=== PATIENT | female | born 1985 | race Hispanic/Latino ===

== ENCOUNTER 2017-03-28 14:09 | Emergency (ER) | payer BC, OTHER ==
[2017-03-28 14:29] VITALS: BP 118/65; PULSE 66; RESP 16; TEMP 97.9; O2SAT 100
--- NOTE | 2017-03-28 14:47 | ED PDOC ---
HPI: Head Injury Time Seen by Provider: 03/28/17 14:41 Chief Complaint (Nursing): Headache Chief Complaint (Provider): Headache, Facial bruising History Per: Patient History/Exam Limitations: no limitations Injury Occurred (Timing): Days Ago: (3) Onset/Duration Of Symptoms: Worse Since (today) Patient States: Fell Striking Head Loss Of Consciousness: No Additional Complaint(s): 31 y/o female presents to the emergency department complaining of headache and facial bruising, onset today. Patient reports that 3 days ago she fell onto her face while drinking, with no loss of consciousness. States she initially did not have a headache, but today she returned to work for the first time and noted moderate facial pain on right side with mild headache and photosensitivity. Denies nausea or vomiting. Patient also reports nasal congestion, ongoing for a while, and is unsure of whether headache is related to sinuses or head injury. PMD: Dr. Fransisco Gavin Past Medical History Reviewed: Historical Data, Nursing Documentation, Vital Signs Vital Signs: Last Vital Signs Temp 97.9 F 03/28/17 14:25 Pulse 66 03/28/17 14:25 Resp 16 03/28/17 14:25 BP 118/65 03/28/17 14:25 Pulse Ox 100 03/28/17 14:25 - Family History Family History: States: Unknown Family Hx - Home Medications Home Medications: Ambulatory Orders Medication Instructions Recorded Naproxen 1 tab PO Q12 PRN #8 tab 03/28/17 Pseudoephedrine [Sudafed Tab] 60 mg PO Q6 PRN #15 tab 03/28/17 - Allergies Allergies/Adverse Reactions: Allergies Allergy/AdvReac Type Severity Reaction Status Date / Time No Known Allergies Allergy Verified 03/28/17 14:24 Review of Systems ROS Statement: Except As Marked, All Systems Reviewed And Found Negative Eyes: Positive for: Other (Photophobia) Skin: Positive for: Bruising (to face) Neurological: Positive for: Headache. Negative for: Weakness, Numbness, Incoordination, Confusion, Dizziness Physical Exam - Reviewed Nursing Documentation Reviewed: Yes Vital Signs Reviewed: Yes - Physical Exam Appears: Positive for: Non-toxic, No Acute Distress Head Exam: Positive for: NORMOCEPHALIC. Negative for: ATRAUMATIC Skin: Positive for: Normal Color (with mild ecchymosis noted to right facial region, non-tender with palpation), Warm, Dry Eye Exam: Positive for: Normal appearance, EOMI, PERRL. Negative for: Nystagmus ENT: Positive for: Normal ENT Inspection, TM Is/Are (normal bilaterally, with no hemotympanum) Neck: Positive for: Normal, Painless ROM, Supple Cardiovascular/Chest: Positive for: Regular Rate, Rhythm Respiratory: Positive for: Normal Breath Sounds. Negative for: Respiratory Distress Back: Positive for: Normal Inspection. Negative for: Vertebral Tenderness Extremity: Positive for: Normal ROM, Other (5/5 strength throughout). 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 Negative for: Motor/Sensory Deficits - ECG O2 Sat by Pulse Oximetry: 100 (RA) Pulse Ox Interpretation: Normal Medical Decision Making Medical Decision Making: Initial Impression: 31 y/o female with head injury without LOC Time: 14:47 Initial Plan: * ED urine * Tylenol 975 mg PO Discussed risks and benefits of CT scan to rule out intracranial abnormality. Patient agrees with plan for conservative management. Scribe Attestation: Documented by Lolis Crane, acting as a scribe for Ronna Monzon PA-C Provider Scribe Attestation: All medical record entries made by the Scribe were at my direction and personally dictated by me. I have reviewed the chart and agree that the record accurately reflects my personal performance of the history, physical exam, medical decision making, and the department course for this patient. I have also personally directed, reviewed, and agree with the discharge instructions and disposition. Disposition - Clinical Impression Clinical Impression: Headache - Patient ED Disposition Is Patient to be Admitted: No Counseled Patient/Family Regarding: Diagnosis, Need For Followup, Rx Given - Disposition Disposition: Routine/Home Disposition Time: 14:53 Condition: STABLE Prescriptions: Naproxen 1 tab PO Q12 PRN #8 tab PRN Reason: Pain, Moderate (4-7) Pseudoephedrine [Sudafed Tab] 60 mg PO Q6 PRN #15 tab PRN Reason: Nasal Congestion Instructions: Head Injury (ED) Forms: [email or web address] (Pashto), [facility] ED School/Work Excuse
== END 2017-03-28 17:34 | disposition home or self-care (01) ==
LOC: H.ER 14:09
DX: S09.90XA Unspecified injury of head, initial encounter (principal); W19.XXXA Unspecified fall, initial encounter; Y92.89 Other specified places as the place of occurrence of the external cause

== ENCOUNTER 2017-04-14 14:10 | Emergency (ER) | payer BC ==
[2017-04-14 14:28] VITALS: BMI 17.2
--- NOTE | 2017-04-14 15:04 | ED PDOC ---
HPI: General Adult Time Seen by Provider: 04/14/17 14:48 Chief Complaint (Nursing): Chest Pain Chief Complaint (Provider): Chest wall spasms History Per: Patient History/Exam Limitations: no limitations Onset/Duration Of Symptoms: Days (4) Current Symptoms Are (Timing): Still Present Additional Complaint(s): Pt. with muscle spasms on chest. Ongoing for 4 days. No pain. Dyspnea as she got anxious with tingles in her hands. No abd pain, nausea, vomit, diarrhea. No leg pain, hormone use, long distance travel. Works out a lot 2x a day and takes caffeine supplement. Past Medical History Reviewed: Nursing Documentation, Vital Signs Vital Signs: Last Vital Signs Temp 96.8 F L 04/14/17 14:27 Pulse 64 04/14/17 14:27 Resp 16 04/14/17 14:27 BP 127/81 04/14/17 14:27 Pulse Ox 100 04/14/17 15:30 - Medical History PMH: Anxiety - Surgical History Surgical History: No Surg Hx - Family History Family History: States: Unknown Family Hx - Living Arrangements Living Arrangements: With Family - Social History Alcohol: None Drugs: Denies - Immunization History Hx Tetanus Toxoid Vaccination: No Hx Influenza Vaccination: No Hx Pneumococcal Vaccination: No - Home Medications Home Medications: Ambulatory Orders Medication Instructions Recorded Naproxen 1 tab PO Q12 PRN #8 tab 03/28/17 Pseudoephedrine [Sudafed Tab] 60 mg PO Q6 PRN #15 tab 03/28/17 - Allergies Allergies/Adverse Reactions: Allergies Allergy/AdvReac Type Severity Reaction Status Date / Time No Known Allergies Allergy Verified 04/14/17 14:27 Review of Systems ROS Statement: Except As Marked, All Systems Reviewed And Found Negative Cardiovascular: Positive for: Chest Pain (wall spasms) Respiratory: Positive for: Shortness of Breath Neurological: Negative for: Weakness, Numbness, Dizziness Physical Exam - Reviewed Nursing Documentation Reviewed: Yes Vital Signs Reviewed: Yes - Physical Exam Appears: Positive for: Non-toxic, No Acute Distress Head Exam: Positive for: ATRAUMATIC, NORMAL INSPECTION, NORMOCEPHALIC Skin: Positive for: Normal Color, Warm, DRY Eye Exam: Positive for: EOMI, Normal appearance, PERRL ENT: Positive for: Normal ENT Inspection Neck: Positive for: Normal, Painless ROM Cardiovascular/Chest: Positive for: Regular Rate, Rhythm, Chest Non Tender. Negative for: Edema Respiratory: Positive for: CNT, Normal Breath Sounds Gastrointestinal/Abdominal: Positive for: Normal Exam, Bowel Sounds, Soft. Negative for: Tenderness Back: Positive for: Normal Inspection. Negative for: L CVA Tenderness, R CVA Tenderness Extremity: Positive for: Normal ROM. 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 Negative for: Motor/Sensory Deficits - Laboratory Results Result Diagrams: 04/14/17 15:24 04/14/17 15:24 Interpretation Of Abn Labs: no acute - ECG ECG: Positive for: Interpreted By Me, Viewed By Me ECG Rhythm: Positive for: Normal QRS, Normal ST Segment, Sinus Rhythm O2 Sat by Pulse Oximetry: 100 Pulse Ox Interpretation: Normal - Progress ED Course And Treament: 1505: Refuses IV and valium. Agrees to blood work and imaging. 1528: Pt. now refusing x-ray. Agrees to wait for blood work. 1629: Stable. Pain free. Tolerated PO. Refusing imaging and IV tx. Wants to go home. No symptoms. AAOx3. Has capacity to make decisions. Disposition - Clinical Impression Clinical Impression: Chest wall pain - Patient ED Disposition Is Patient to be Admitted: No Counseled Patient/Family Regarding: Studies Performed, Diagnosis, Need For Followup - Disposition Referrals: [facility] [Outside] - 04/16/17 Disposition: Routine/Home Disposition Time: 16:29 Condition: STABLE Additional Instructions: Return if not better in 3 days. Instructions: Chest Wall Pain (ED) Forms: [employer] (Urdu)
[2017-04-14 15:30] LABS: BASO # 0.1 K/uL (0.0-0.2); EOS # 0.1 K/uL (0.0-0.7); EOS % 1.5 % (0.0-4.0); HEMOGLOBIN 11.8 g/dL (12.0-16.0); LYMPH # 1.4 K/uL (1.0-4.3); LYMPH % 21.6 % (20.0-40.0); MEAN CELL VOLUME 92.3 fl (81.0-99.0); MEAN CORPUSCULAR HEMOGLOBIN 30.5 pg (27.0-31.0); MEAN CORPUSCULAR HGB CONC 33.1 g/dL (33.0-37.0); MEAN PLATELET VOLUME 8.1 fl (7.2-11.7); MONO # 0.4 K/uL (0.0-0.8); MONO % 6.9 % (0.0-10.0); NEUT # 4.4 K/uL (1.8-7.0); RBC 3.88 Mil/uL (3.80-5.20); RED CELL DISTRIBUTION WIDTH 14.6 % (11.5-14.5); WHITE BLOOD COUNT 6.4 K/uL (4.8-10.8)
[2017-04-14 15:52] LABS: ALB/GLOB RATIO 1.5 (1.0-2.1); ALBUMIN 4.6 g/dL (3.5-5.0); ALT/SGPT 30 U/L (9-52); AST/SGOT 52 U/L (14-36); BLOOD UREA NITROGEN 13 mg/dl (7-17); CALCIUM 10.5 mg/dL (8.4-10.2); GFR AFRICAN-AMERICAN > 60; GFR NON-AFRICAN AMERICAN > 60
[2017-04-14 16:54] VITALS: BP 128/78; PULSE 78; RESP 18; TEMP 98; O2SAT 98
--- NOTE | 2017-04-15 11:23 | CARD ---
APPROVED REPORT EKG Measurement Heart [id number] <Conclusion> Normal sinus rhythm Rightward axis Borderline ECG
== END 2017-04-14 16:54 | disposition home or self-care (01) ==
LOC: H.ER 14:10
DX: R07.89 Other chest pain (principal); F41.9 Anxiety disorder, unspecified